=== PATIENT | female | born 1995 | race American Indian/Alaskan Native ===

== ENCOUNTER → 2018-05-23 12:37 | Outpatient (CLI) | payer OTHER, SELFPAY ==
[2018-05-23 13:47] LABS: HEMOLYSIS 19 (0-50); Potassium 3.9 mmol/L (3.4-5.1)
== END ==
PROVIDERS: Visit Provider Physician Assistant
DX: E87.5 Hyperkalemia (principal)
CPT/HCPCS: 36415; 84132

== ENCOUNTER 2021-04-17 23:53 | Emergency (ER) | payer MEDICAID, OTHER, SELFPAY ==
[2021-04-18 00:04] VITALS: BP 117/74; PULSE 61; RESP 16; TEMP 36.5; O2SAT 100; BMI 21.4
--- NOTE | 2021-04-18 00:07 | DI.RAD.S_ITS ---
PROCEDURE: XR ELBOW LT MIN 3V INDICATIONS: Pain in previous surgical site; possible dislodged hardware TECHNIQUE: 3 views of the elbow were acquired. COMPARISON: [facility], , ELBOW 3+ VIEWS LEFT, 09/06/2012, 20:51. FINDINGS: Bones: No acute fractures or dislocations. There are postsurgical changes status post ORIF fractures through the medial humeral condyle and the radial head. The surgical hardware appears intact without definite associated suspicious lucencies. There are osteoarthritic changes with mild osteophytosis in the elbow. Soft tissues: There is suggestion of a small elbow joint effusion. No suspicious soft tissue calcifications. IMPRESSION: 1. Postsurgical and posttraumatic changes demonstrated as described without definite acute fracture or evidence of hardware failure. 2. 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 Dictated by: Stephan Conway M.D. on 04/18/2021 at 0:29 Approved by: Stephan Conway M.D. on 04/18/2021 at 0:32
--- NOTE | 2021-04-18 00:16 | PC.NURSE ---
patient had a surgical procedure 9 years ago and today she said that it feels like her hardware has come out.
--- NOTE | 2021-04-18 00:53 | ED_ITS ---
HPI - Extremity Problem General Chief complaint: Extremity Problem,Nontraumatic Stated complaint: thinks pins in her left arm are dislodged Time Seen by Provider: 04/18/21 00:34 Source: patient and family Mode of arrival: Ambulatory Limitations: no limitations History of Present Illness HPI Narrative: 25-year-old woman with a history of significant left elbow fracture 9 years ago with ORIF presents with significant pain to the left elbow. She does note that it has been positionally sensitive over the years. She reports falling asleep with her elbow and a significantly flexed position and when she awoke all of the pain seemed to be worse. She has no fevers, no warmth to the skin around the elbow, no redness. She denies any specific trauma feet having no shoulder pain no neck pain and otherwise feels well. Related Data Previous Rx's Medication Instructions Recorded triamcinolone acetonide 0.5 % 1 ryan TOPICAL BID #30 gm 02/26/17 topical cream Allergies Allergy/AdvReac Type Severity Reaction Status Date / Time nitrofurantoin Allergy Unknown Unverified 01/09/18 13:08 [From MACRODANTIN] SULFA Allergy Unknown Uncoded 01/09/18 13:08 Review of Systems Review of Systems Narrative: Remainder of complete review of systems is otherwise unremarkable except for that included in the HPI. Patient History Medical History (Updated 04/18/21 @ 01:09 by Zuleyma Kirkpatrick MD) Elbow fracture, left Social History Smoking Status: Never smoker Smoking Status: Never smoker Substance Use Type: does not use Exam Narrative Exam Narrative: General: Alert appropriate in no acute distress Respiratory: Able to speak in full sentences, no obvious respiratory distress Skin: No obvious rashes, warm and dry Neurologic: Grossly intact no obvious asymmetries or abnormalities Psych: appropriate insight and affect, cooperative Extremity: Left elbow with some mild fullness over the lateral epicondyle without redness, warmth. She does have full range of motion but is somewhat tender with this at the elbow. There is no trapezius muscle tenderness no shoulder tenderness and she is otherwise neurovascularly intact in that arm and hand. Initial Vital Signs Initial Vital Signs: Vital Signs Temperature 97.7 F 04/18/21 00:04 Pulse Rate 61 04/18/21 00:04 Respiratory Rate 16 04/18/21 00:04 Blood Pressure 117/74 04/18/21 00:04 Pulse Oximetry 100 07/19/21 00:04 Course Orders Ordered: ED Orders 04/18/21 00:07 XR elbow LT min 3V Stat Discontinued Medications Acetaminophen (Acetaminophen 325 Mg Tablet) 325 mg PO NOW ONE Stop: 04/18/21 01:04 Ibuprofen (Ibuprofen 400 Mg Tablet) 400 mg PO NOW ONE Stop: 04/18/21 01:04 Vital Signs Vital signs: Vital Signs - 8 hr 04/18/21 00:04 Temperature 97.7 F Pulse Rate 61 Respiratory Rate 16 Blood Pressure 117/74 Pulse Oximetry 100 MDM - Extremity (Nontraumatic) MDM Narrative Medical decision making narrative: 25-year-old woman presents with elbow pain and mild fullness over the lateral epicondyle with hardware in place. There is no evidence of new trauma, blood clot to the upper extremity, septic joint, bursitis, hardware infection or superficial cellulitis. I suspect that she irritated the area with the hyperflexion position that she had her elbow in. Recommended conservative treatment with ice nonsteroidals and rest and follow-up with her orthopedic surgeon is symptoms are not improving. She is safe for home discharge Discharge Plan Departure Patient Disposition: Home Clinical Impression: Elbow pain Qualifiers: Laterality: left Qualified Code(s): M25.522 - Pain in left elbow Instructions: DI for Elbow Pain Activity Restrictions/Additional Instructions: Thank you for coming in today The x-rays of your elbow are reassuring. All the hardware appears to be appropriately in place. On your physical exam there is no evidence of infection, bursitis, radicular pain from your neck or referred pain from your shoulder. There is no blood clots or vascular abnormalities. There is a bit of swelling over the outer edge of your elbow. It may be that the completely flexed position that you fell asleep in today cause some irritation related to the hardware in the elbow. I am going to recommend ice, rest and you may find that using 400 mg of ibuprofen (2 [id number] pills) and 1 Tylenol every 6 hours can be very helpful in controlling pain. If symptoms are not significantly improved within the next couple of days, please schedule an appointment with your orthopedic surgeon so they can re- evaluate the elbow. It may be that your just having more pain and irritation around the hardware and the hardware needs to be removed. If you notice fevers, redness or heat to the elbow or new or changing symptoms it would be very appropriate to return to the ER I hope you heal quickly Prescriptions: No Action triamcinolone acetonide 0.5 % cream 1 ryan Topical BID Qty: 30 RF: 0
[2021-04-18 01:14] VITALS: BP 112/69; PULSE 92; RESP 18; O2SAT 99
[2021-04-18] MEDS: IBUPROFEN 400 MG TABLET PO (01:15)
[2021-04-18] MEDS: ACETAMINOPHEN 325 MG TABLET PO (01:15)
== END 2021-04-18 01:21 | disposition home or self-care (01) ==
PROVIDERS: Emergency Provider Emergency Medicine
DX: M25.522 Pain in left elbow (principal)
CPT/HCPCS: 73080; 99283

== ENCOUNTER 2025-07-12 12:43 | Emergency (ER) | payer OTHER, SELFPAY ==
[2025-07-12 13:02] VITALS: BP 115/63; PULSE 76; RESP 12; TEMP 36.6; O2SAT 98; BMI 22.8
--- NOTE | 2025-07-12 13:07 | DI.RAD.S_ITS ---
PROCEDURE: XR HAND LT MIN 3V INDICATIONS: L hand TECHNIQUE: 3 views of the hand(s) acquired. COMPARISON: None. FINDINGS: Bones: No fractures or dislocations. Carpal bones are normally aligned. No suspicious bony lesions. Surgical fixation screws through the head of the 2nd proximal phalanx. Soft tissues: No suspicious soft tissue calcifications. IMPRESSION: No acute bony abnormality. Dictated by: Michael Storey M.D. on 07/12/2025 at 12:32 Approved by: Michael Storey M.D. on 07/12/2025 at 12:33
--- NOTE | 2025-07-12 18:21 | ED_ITS ---
HPI - Wound/Laceration General Chief Complaint: Wound/Laceration Stated Complaint: cut left pointer finger Time Seen by Provider: 07/12/25 13:07 Source: patient Mode of arrival: Ambulatory Related Data Previous Rx's ?Medication ?Instructions ?Recorded triamcinolone acetonide 0.5 % 1 ryan topical BID ##30 0 02/26/17 topical cream Allergies Allergy/AdvReac Type Severity Reaction Status Date / Time nitrofurantoin (From Allergy Unknown Unverified 07/12/25 13:02 MACRODANTIN) SULFA Allergy Unknown Uncoded 07/12/25 13:02 Patient History Medical History (Updated 07/12/25 @ 15:00 by Merissa Panda RN) Elbow fracture, left Social History Smoking Status: Never smoker Smoking Status: Never smoker Exam Initial Vital Signs Initial Vital Signs: Vital Signs Temperature 97.8 F 07/12/25 13:02 Pulse Rate 76 07/12/25 13:02 Respiratory Rate 12 07/12/25 13:02 Blood Pressure 115/63 07/12/25 13:02 Pulse Oximetry 98 07/12/25 13:02 Oxygen Delivery Method Room Air 07/12/25 13:02 Course Orders Ordered: ED Orders 07/12/25 13:07 XR hand LT min 3V Stat Vital Signs Vital signs: Vital Signs - 8 hr 07/12/25 13:02 Temperature 97.8 F Pulse Rate 76 Respiratory Rate 12 Blood Pressure 115/63 Pulse Oximetry 98 Oxygen Delivery Method Room Air Discharge Plan Departure Patient Disposition: Left Without Being Seen Clinical Impression: Patient left without being seen Prescriptions: No Action triamcinolone acetonide 0.5 % cream 1 ryan Topical BID Qty: 30 0RF
== END 2025-07-12 14:50 | disposition left against medical advice (07) ==
PROVIDERS: Emergency Provider Family Medicine
DX: S69.92XA Unspecified injury of left wrist, hand and finger(s), initial encounter (principal); W26.0XXA Contact with knife, initial encounter
CPT/HCPCS: 73130; 99281